=== PATIENT | male | born 1975 | race Caucasian/White ===

== ENCOUNTER → 2023-06-07 | Outpatient (CLI) | payer OTHER ==
--- NOTE | 2023-06-08 16:04 | MR ---
EXAMINATION TYPE: MR cspine/lspine wo con DATE OF EXAM: 06/07/2023 7:52 PM CLINICAL INDICATION:Male, 48 years old with history of M54.12 RADICULOPATHY, CERVICAL REGION, Neck pa in, Low back pain, Numbness, tingling into both arms/legs bilateral COMPARISON: None TECHNIQUE: Multi planar, multi sequence imaging was performed utilizing: T1-weighted, T2-weighted, a nd turbo inversion recovery imaging of the cervical and lumbar spine. MR contrast: IV Contrast: None. FINDINGS: CERVICAL: Alignment: The cervical vertebral bodies have preserved heights. Alignment is within normal limits gi carrie patient positioning. Bones: Scattered Modic endplate changes with osteophytes and disc space narrowing. Multilevel degener ative disc disease is noted and most pronounced at the C5-C7 vertebral levels. Cord: The spinal cord is unremarkable with regards to their signal intensity and morphology. Discs: Multilevel disc desiccation is present. C2-C3: No significant disc pathology. The spinal canal is patent. No neural foraminal stenosis. C3-C4: No significant disc pathology. The spinal canal is patent. No neural foraminal stenosis. C4-C5: No significant disc pathology. The spinal canal is patent. No neural foraminal stenosis. C5-C6: A disc osteophyte complex is present with mild spinal canal stenosis. Bilateral facet and unc overtebral joint arthropathy are present with moderate bilateral neural foraminal stenosis. C6-C7: A disc osteophyte complex is present with mild spinal canal stenosis. Bilateral facet and unc overtebral joint arthropathy are present with moderate to severe right and mild left neural foraminal stenosis. C7-T1: No significant disc pathology. The spinal canal is patent. No neural foraminal stenosis. Other: None. LUMBAR: Alignment: The lumbar vertebral bodies have preserved heights and alignment. Cord: The conus medullaris and the distal spinal cord appear unremarkable with regards to their signa l intensity and morphology. Bones/Discs: Mild degeneration changes throughout the spine with osteophyte formation and facet joint arthropathy. Intervertebral disc signal is maintained. T12-L1: No evidence of significant spinal canal stenosis or neural foraminal stenosis. L1-L2: No evidence of significant spinal canal stenosis or neural foraminal stenosis. L2-L3: No evidence of significant spinal canal stenosis or neural foraminal stenosis. L3-L4: No evidence of significant spinal canal stenosis. Facet joint arthropathy mild bilateral neura l foraminal stenosis. L4-L5: Disc bulge and facet joint arthropathy result in mild spinal canal and mild bilateral neural f oraminal stenosis. L5-S1: The disc is rounded posterior morphology without significant spinal canal stenosis. Facet join t arthropathy with moderate bilateral neural foraminal stenosis. No significant spinal canal or neural foraminal stenosis in the remainder of the visualized levels. Other findings: None. IMPRESSION: 1. No definitive evidence of disc herniation or significant spinal canal stenosis. 2. Mild disc degeneration with associated osteoarthritic changes. Neural foraminal stenosis worse in the cervical spine at C6-C7 with moderate to severe right and in the lumbar spine at L5-S1 with mode rate bilateral
== END | disposition home or self-care (01) ==
LOC: RADMRIMAIN 17:29
PROVIDERS: ATTEND Family Medicine
DX: M99.71 Connective tissue and disc stenosis of intervertebral foramina of cervical region (principal); M47.26 Other spondylosis with radiculopathy, lumbar region; M51.16 Intervertebral disc disorders with radiculopathy, lumbar region; M47.22 Other spondylosis with radiculopathy, cervical region
CPT/HCPCS: 72141; 72148

== ENCOUNTER → 2023-06-27 | Outpatient (CLI) | payer OTHER ==
[2023-06-27 13:29] VITALS: BP 146/100; PULSE 60; RESP 16
--- NOTE | 2023-06-27 13:59 | P.PAINPG ---
PQRS Measure Charge Sheet Comment: HISTORY OF PRESENT ILLNESS: A 48 yr old male as a referral from the [facility] presents today w severe and chronic neck pain x 6 mo secondary to spinal stenosis, DDD, spondylosis and facet arthropathy without myelopathy for evaluation. Pt states pain level is provoked at 6 /10 in intensity, constant, localized in the mid to lower cervical spine, predominantly axial, achy in character w occasional shooting pain towards the scapula and UEs/ hands. Pain is provoked by over activity. Pain is alleviated by physician guided exercises daily x 4 yrs which he currently does, chrioractic treatments monthly x 2 yrs w last visit in 2021, medications (Mobic, Ibu), topical, repositioning and rest. Cervical disability score at 24. PMH: OA, HTN, MDD, GERD, BPH, ED, PSH: DENIES SH: Negative x3 FH: Non contributory All: See list Meds: See list REVIEW OF ORGAN SYSTEMS: CONSTITUTIONAL: No fevers or chills. No recent weight loss. NEUROLOGICAL: + numbness and tingling along the distal extremities. No seizure disorders or headaches. MUSCULOSKELETAL: + pain PSYCHIATRIC: Denies current depression or suicidal thoughts. Physical Examinations : Constitutional : Cooperative , not in acute distress . Neurologic : Cranial nerve II to XII intact. No focal neurological deficits. Psychiatric : alert & oriented x 3. Matching mood & appropriate affect. Judgment & insight intact. Musculoskeletal : Cervical Spine Motor strength in the deltoid and biceps: Normal right side. Normal Left side Motor strength biceps and the wrist extensors: Normal right side . Normal left side Motor strength in the triceps muscle: Normal right side. Normal left side Deep tendon reflexes: Normal at the biceps. Normal at Brachioradialis. Normal at triceps Vertebral body tenderness to deep palpation over Cervical facet loading test: positive BL C4-C5, C5-C6 Spurling test: positive bilaterally Neck distraction test: positive bilaterally Lakeshia sign: positive bilaterally Lumbar spine Motor strength lower extremities ,thigh and legs 5/5 Right side , 5/5 Left side Deep tendon reflexes : Normal Knee Jerk. Normal Ankle Jerk Vertebral body tenderness over Avalos Test positive Lumbar facet Loading Test: positive Right / positive Left Range of motion of the lumbar spine Flexion 30 degrees, extension 10 degrees Straight Leg Raise test: Left/ Right positive at degree Johny test: positive right / positive left. Severe tenderness over the Sacroiliac joint on the Right / Left sides Gaenslen test: positive bilaterally Seated flexion test: positive bilaterally. Sacral spine : Severe tenderness over the Sacroiliac joint: right side / left side Range of motion: Flexion of the lumbar spine <60 degrees Range of motion: Extension of the lumbar spine <20 degrees Gaenslen's Test positive Johny test: positive right side / left side Thigh Thrust Test Sacral Thrust Test Imaging: MRI noncontrast of the cervical spine from 06/07/23 reviewed Assessment/ Plan : Cervical stenosis, Cervical DDD Recommendation of BL MBB C4-C6 #1. May need a series of injections, up until RFA, for optimal pain relief. Risks, benefits of procedure discussed and patient verbalized understanding. Admits to anti- coagulant use or medical history of diabetes. Protocol for discontinuation/ continuation of medications vasyl procedure discussed. Minimal anesthesia provided, if clinically indicated, consisting of Versed and Fentanyl. All questions answered. I have spent greater than 30 minutes on patient care today. Dr Mcknight was available by phone for the evaluation of this patient. The time was used to review the medical records including relevant urine studies and Prescription history (MAPs), review of the available imaging, evaluation and examination of the patient, coordination of care with the medical staff and if applicable referring physicians, as well as creation of the medical record Home Medications: Ambulatory Orders Meloxicam [Mobic] 7.5 mg PO DAILY 06/27/23 Controlled Substance Measures - Controlled Substance Measures Is patient prescribed a controlled substance at discharge?: No
== END ==
LOC: PNWHC3 12:36
PROVIDERS: ATTEND Specialist
DX: M50.321 Other cervical disc degeneration at C4-C5 level (principal); M50.322 Other cervical disc degeneration at C5-C6 level; M48.02 Spinal stenosis, cervical region; M19.90 Unspecified osteoarthritis, unspecified site; I10 Essential (primary) hypertension; F32.9 Major depressive disorder, single episode, unspecified; K21.9 Gastro-esophageal reflux disease without esophagitis; N40.0 Benign prostatic hyperplasia without lower urinary tract symptoms; Z87.438 Personal history of other diseases of male genital organs; Z88.8 Allergy status to other drugs, medicaments and biological substances
CPT/HCPCS: 99202

== ENCOUNTER 2023-07-19 06:01 | Day surgery (SDC) | payer OTHER ==
[2023-07-17 09:16] VITALS: BMI 29.8
[2023-07-19] MEDS: LACTATED RINGERS 1,000 ML IV ONE (06:40)
[2023-07-19] MEDS ORDERED: LACTATED RINGERS 1,000 ML IV SCH (06:41)
[2023-07-19] MEDS ORDERED: ROPIVACAINE 5MG/ML 20ML VIAL ONE (07:02)
[2023-07-19] MEDS ORDERED: MIDAZOLAM 2 MG/2 ML VIAL ONE (07:02)
[2023-07-19] MEDS ORDERED: fentaNYL (PF) 50 MCG/ML 2 ML AMP ONE (07:02)
[2023-07-19 07:14] VITALS: TEMP 97.3
[2023-07-19] MEDS: IV FLUID CONTINUATION 1,000 ML IV ONE ×2 (07:31→07:55)
--- NOTE | 2023-07-19 07:41 | P.PCN ---
Description of Procedure: Preprocedure diagnosis. Cervical facet joint arthropathy, cervical spine spondylosis, cervical degenerative disc disease. Postprocedure diagnosis. As above. Procedure done. Bilateral C4-5, C5-6 facet joint (C4, C5, C6 medial branch of dorsal ramus) diagnostic injection with local anesthetics under fluoroscopic guidance. Anesthesia. As per anesthesia department. IV sedation of Versed milligram, fentanyl micrograms give in OR. Continuous pulse ox, EKG, blood pressure and verbal communication was maintained with the patient in OR. Blood loss. None. Indication. Patient has got the diagnoses of cervical spondylolysis, facet joint arthropathy with neck pain. Discussed with the patient procedure, alternatives, complications including infection, bleeding, nerve damage, paralysis all of which could be permanent. Patient understands and all questions are answered. Procedure note. After getting consent patient in OR in prone position. Back of the neck was prepped with chlorhexidine and draped in sterile fashion. After injecting 3 mL of plain 1% lidocaine subcutaneously, a 22-gauge spinal needle was introduced under tunnel vision of the fluoroscope AP view at the waist of the articular pillar (lateral mass) at C4 vertebral level. In the lateral view of the fluoroscope it was confirmed that the tip of the needle stayed within the dorsal half of the articular pillar (lateral mass). So, right C4-5 facet joint was targeted by blocking right C4 and C5 medial branch, right C5-6 facet joint was targeted by blocking right C5 and C6 medial branch. In exactly the same way , after subcutaneous injection of lidocaine, 22-gauge spinal needles were introduced under tunnel vision of the fluoroscope AP view at the waist of the articular pillars (lateral mass) at C5 and C6 vertebral level. In the lateral view of the fluoroscope it was confirmed that the tip of the needle stayed within the dorsal half of the articular pillar (lateral mass). At each needle, 0.5 mL of 0.5% ropivacaine preservative-free was injected. In exactly same way left C4-5, C5-6 facet joints were targeted by blocking left C4, C5, C6 medial branch of dorsal ramus. After the procedure needle was taken out and bandage was applied. Disposition. Patient tolerated the procedure well. No complication. Discharged home in stable condition.
--- NOTE | 2023-07-19 07:52 | FL ---
Fluoroscopy History: Errol C/TH Facet Blk 45sec fluoro time .[id number] DAP
[2023-07-19 07:55] VITALS: BP 118/82; PULSE 63; RESP 20
== END 2023-07-19 07:57 | disposition home or self-care (01) ==
LOC: ORPAIN 06:01
PROVIDERS: ATTEND Pain Medicine Interventional Pain Medicine
DX: M47.812 Spondylosis without myelopathy or radiculopathy, cervical region (principal); M50.322 Other cervical disc degeneration at C5-C6 level
CPT/HCPCS: 64491 ×2; 64490; J2250; J3010; J2795; 99152; 99153

== ENCOUNTER → 2023-09-05 | Outpatient (CLI) | payer OTHER ==
[2023-09-05 08:18] VITALS: BP 152/103; PULSE 59; RESP 16; TEMP 97.1
--- NOTE | 2023-09-05 14:46 | P.PAINPG ---
PQRS Measure Charge Sheet Comment: HISTORY OF PRESENT ILLNESS: A 48 yr old male presents today w severe and chronic neck pain x 6 mo secondary to spinal stenosis, DDD, spondylosis and facet arthropathy without myelopathy for evaluation s/p BL MBB C4-C6 #1. Pt states he experienced 80% pain relief x 2 wks s/p procedure. Pt states pain level is provoked at 6 /10 in intensity, constant, localized in the mid to lower cervical spine, predominantly axial, dull in character w occasional shooting pain towards the scapula and UEs/ hands. Pain is provoked by over activity. Pain is alleviated by physician guided exercises daily x 4 yrs which he currently does, chiropractic treatments monthly x 2 yrs w last visit in 2021, medications (Mobic, Ibu), topical, repositioning and rest. Cervical disability score at 24. Interventional procedures include BL MBB C4-C6 x1 Medications include Mobic, Ibu REVIEW OF ORGAN SYSTEMS: CONSTITUTIONAL: No fevers or chills. No recent weight loss. NEUROLOGICAL: + numbness and tingling along the distal extremities. No seizure disorders or headaches. MUSCULOSKELETAL: + pain PSYCHIATRIC: Denies current depression or suicidal thoughts. Physical Examinations : Constitutional : Cooperative , not in acute distress . Neurologic : Cranial nerve II to XII intact. No focal neurological deficits. Psychiatric : alert & oriented x 3. Matching mood & appropriate affect. Judgment & insight intact. Musculoskeletal : Cervical Spine Motor strength in the deltoid and biceps: Normal right side. Normal Left side Motor strength biceps and the wrist extensors: Normal right side . Normal left side Motor strength in the triceps muscle: Normal right side. Normal left side Deep tendon reflexes: Normal at the biceps. Normal at Brachioradialis. Normal at triceps Vertebral body tenderness to deep palpation over Cervical facet loading test: positive BL C4-C5, C5-C6 Spurling test: positive bilaterally Neck distraction test: positive bilaterally Lakeshia sign: positive bilaterally Lumbar spine Motor strength lower extremities ,thigh and legs 5/5 Right side , 5/5 Left side Deep tendon reflexes : Normal Knee Jerk. Normal Ankle Jerk Vertebral body tenderness over Avalos Test positive Lumbar facet Loading Test: positive Right / positive Left Range of motion of the lumbar spine Fl exion 30 degrees, extension 10 degrees Straight Leg Raise test: Left/ Right positive at degree Johny test: positive right / positive left. Severe tenderness over the Sacroiliac joint on the Right / Left sides Gaenslen test: positive bilaterally Seated flexion test: positive bilaterally. Sacral spine : Severe tenderness over the Sacroiliac joint: right side / left side Range of motion: Flexion of the lumbar spine <60 degrees Range of motion: Extension of the lumbar spine <20 degrees Gaenslen's Test positive Johny test: positive right side / left side Thigh Thrust Test Sacral Thrust Test Imaging: MRI noncontrast of the cervical spine from 06/07/23 reviewed Assessment/ Plan : Cervical stenosis, Cervical DDD Recommendation of BL MBB C4-C6 #2. May need a series of injections, up until RFA, for optimal pain relief. Risks, benefits of procedure discussed and patient verbalized understanding. Admits to anti- coagulant use or medical history of diabetes. Protocol for discontinuation/ continuation of medications vasyl procedure discussed. Minimal anesthesia provided, if clinically indicated, consisting of Versed and Fentanyl. All questions answered. I have spent greater than 30 minutes on patient care today. Dr Mcknight was available by phone for the evaluation of this patient. The time was used to review the medical records including relevant urine studies and Prescription history (MAPs), review of the available imaging, evaluation and examination of the patient, coordination of care with the medical staff and if applicable referring physicians, as well as creation of the medical record PQRS Narrative: Hx Alcohol Use (MH) No Home Medications: Ambulatory Orders Cholecalciferol [Vitamin D3 (125 Mcg = 5000 Iu)] 125 mcg PO DAILY 07/17/23 Citalopram Hydrobromide [Citalopram HBr] 20 mg PO DAILY 07/17/23 Losartan [Cozaar] 50 mg PO DAILY 07/17/23 Meloxicam [Mobic] 15 mg PO DAILY 07/17/23 Omeprazole 40 mg PO DAILY 07/17/23 Prazosin HCl 2 mg PO DAILY 07/17/23 Sildenafil Citrate 50 mg PO DAILY 07/17/23 Vitamin B Complex 1 each PO DAILY 07/17/23 hydroCHLOROthiazide 12.5 mg PO DAILY 07/17/23 traZODone HCL 100 mg PO DAILY 07/17/23 Controlled Substance Measures - Controlled Substance Measures Is patient prescribed a controlled substance at discharge?: No
== END ==
LOC: PNWHC3 07:32
PROVIDERS: ATTEND Specialist
DX: M50.321 Other cervical disc degeneration at C4-C5 level (principal); M50.322 Other cervical disc degeneration at C5-C6 level; M48.02 Spinal stenosis, cervical region; Z88.8 Allergy status to other drugs, medicaments and biological substances
CPT/HCPCS: 99211

== ENCOUNTER 2023-10-04 05:39 | Day surgery (SDC) | payer OTHER ==
[2023-10-04 06:33] VITALS: TEMP 96.9
[2023-10-04] MEDS: LACTATED RINGERS 1,000 ML BAG IV STA (06:39)
[2023-10-04] MEDS: IV FLUID CONTINUATION 1,000 ML IV ONE ×2 (06:39→07:47)
[2023-10-04] MEDS ORDERED: LACTATED RINGERS 1,000 ML IV SCH (06:50)
[2023-10-04] MEDS ORDERED: ROPIVACAINE 5MG/ML 20ML VIAL ONE (07:15)
[2023-10-04] MEDS ORDERED: fentaNYL (PF) 50 MCG/ML 2 ML AMP ONE (07:15)
[2023-10-04] MEDS ORDERED: MIDAZOLAM 2 MG/2 ML VIAL ONE (07:15)
--- NOTE | 2023-10-04 07:45 | P.PCN ---
Date of Procedure: 10/04/23 Procedure(s) Performed: PREOPERATIVE DIAGNOSIS: 1-Cervical Spondylosis with Facet Arthropathy.without myelopathy. 2-cervical degenerative disc disease POSTOPERATIVE DIAGNOSIS:1-cervical spondylosis with facet arthropathy without myelopathy. 2-cervical degenerative disc disease PROCEDURES: Diagnostic bilateral C4 , C5 , and C6 medial branch blocks, with fluoroscopic guidance (fluoroscopy images available in radiology department ) ( to target the facet joint at bilateral C4- 5 ,C5- 6 )#2nd ANESTHESIA: moderate sedation with Versed 2 mg , and fentanyl 100 micrograms (sedation was started at 07:15 ended 07:40 ) EBL: Minimal PROCEDURE INDICATION: The patient with neck pain secondary to cervical arthropathy unresponsive to more conservative treatments. PROCEDURE DESCRIPTION / TECHNIQUE: The patient was seen and identified in the preoperative area. Risks, benefits, complications, and alternatives were discussed with the patient, the patient agreed to proceed with the procedure and signed the consent. IV was started. Vital signs remained stable throughout the procedure. Patient was taken to the OR and time out was completed. The patient was placed in the lateral position on the procedure table. The cervical area was prepped and draped in the usual sterile fashion. Critical pause was taken. Vital signs were closely monitored during the procedure. Conscious sedation was used during the procedure to decrease patients anxiety. Using cross-table lateral fluoroscopy, the centroid of the trapezoid of right C4 , C5 and C6, was identified, marked, and localized with 1% lidocaine 1 ml at each level for skin and Sub Q infiltrations . Subsequently, a 22 G 4 spinal needle was advanced guided by fluoroscopy to the centroid of the trapezoid of Right C4 , C5, C6 . Houghton tip position was confirmed at the centroid of the trapezoids of Right C4 , C5 ,C6 with anteroposterior fluoroscopy. Subsequently, 2 ml of preservative-free Ropivacaine 0.5% mixed and half ml of the was injected after negative aspiration for blood and CSF. Houghton was then removed intact the same procedure was repeated at the left C4 , C5 , and C6 levels. COMPLICATIONS: No acute complications. COMMENTS:(We tried to do the procedure and in prone position I was not able to visualize C6 vertebral, this reason the procedure done in lateral position) DISPOSITION / PLANS: The patient was placed in a supine position and transferred to the recovery area in a stable condition for observation and was discharged from the recovery room after meeting discharge criteria. Home discharge instructions given to the patient by the staff. The patient was reexamined prior to discharge. The patient will schedule a follow up in the clinic in 2-4 weeks.
[2023-10-04 08:09] VITALS: RESP 16
[2023-10-04 08:21] VITALS: BP 103/71; PULSE 67
--- NOTE | 2023-10-04 11:39 | FL ---
EXAMINATION TYPE: FL guided pain mgmt statistic Intraoperative/procedural fluoroscopic services were provided. Total fluoroscopy time is 45.5 seconds with a total of 3 submitted images to PACS. Please s ee the operative/procedural note for further details. DAP: 0.10837 mGym2
== END 2023-10-04 08:28 | disposition home or self-care (01) ==
LOC: ORPAIN 05:39
PROVIDERS: ATTEND Specialist
DX: M47.812 Spondylosis without myelopathy or radiculopathy, cervical region (principal); M50.322 Other cervical disc degeneration at C5-C6 level; Z88.8 Allergy status to other drugs, medicaments and biological substances
CPT/HCPCS: 64490; 64491 ×2; 99152; 99153; J2250; J3010; J2795

== ENCOUNTER → 2023-10-24 | Outpatient (CLI) | payer OTHER ==
[2023-10-24 07:48] VITALS: BP 172/111; PULSE 53; RESP 16
--- NOTE | 2023-10-24 14:53 | P.PAINPG ---
PQRS Measure Charge Sheet Comment: HISTORY OF PRESENT ILLNESS: A 48 yr old male presents today w severe and chronic neck pain x 6 mo secondary to spinal stenosis, DDD, spondylosis and facet arthropathy without myelopathy for evaluation s/p BL MBB C4-C6 #2. Pt states he experienced 85% pain relief x 2 days s/p procedure. Pt states pain level is provoked at 6 /10 in intensity, constant, localized in the mid to lower cervical spine, predominantly axial, dull in character w occasional shooting pain towards the scapula and UEs/ hands. Pain is provoked by over activity. Pain is alleviated by physician guided exercises daily x 4 yrs which he currently does, chiropractic treatments monthly x 2 yrs w last visit in 2021, medications (Mobic, Ibu), topical, repositioning and rest. Cervical disability score at 23. Interventional procedures include BL MBB C4-C6 x2 Medications include Mobic, Ibu REVIEW OF ORGAN SYSTEMS: CONSTITUTIONAL: No fevers or chills. No recent weight loss. NEUROLOGICAL: + numbness and tingling along the distal extremities. No seizure disorders or headaches. MUSCULOSKELETAL: + pain PSYCHIATRIC: Denies current depression or suicidal thoughts. Physical Examinations : Constitutional : Cooperative , not in acute distress . Neurologic : Cranial nerve II to XII intact. No focal neurological deficits. Psychiatric : alert & oriented x 3. Matching mood & appropriate affect. Judgment & insight intact. Musculoskeletal : Cervical Spine Motor strength in the deltoid and biceps: Normal right side. Normal Left side Motor strength biceps and the wrist extensors: Normal right side . Normal left side Motor strength in the triceps muscle: Normal right side. Normal left side Deep tendon reflexes: Normal at the biceps. Normal at Brachioradialis. Normal at triceps Vertebral body tenderness to deep palpation over Cervical facet loading test: positive BL C4-C5, C5-C6 Spurling test: positive bilaterally Neck distraction test: positive bilaterally Lakeshia sign: positive bilaterally Lumbar spine Motor strength lower extremities ,thigh and legs 5/5 Right side , 5/5 Left side Deep tendon reflexes : Normal Knee Jerk. Normal Ankle Jerk Vertebral body tenderness over Avalos Test positive Lumbar facet Loading Test: positive Right / positive Left Range of motion of the lumbar spine F lexion 30 degrees, extension 10 degrees Straight Leg Raise test: Left/ Right positive at degree Johny test: positive right / positive left. Severe tenderness over the Sacroiliac joint on the Right / Left sides Gaenslen test: positive bilaterally Seated flexion test: positive bilaterally. Sacral spine : Severe tenderness over the Sacroiliac joint: right side / left side Range of motion: Flexion of the lumbar spine <60 degrees Range of motion: Extension of the lumbar spine <20 degrees Gaenslen's Test positive Johny test: positive right side / left side Thigh Thrust Test Sacral Thrust Test Imaging: MRI noncontrast of the cervical spine from 06/07/23 reviewed Assessment/ Plan : Cervical stenosis, Cervical DDD Recommendation of BL RFA C4-C6. Exhibited optimal pain relief w prior BL MBB procedures. Risks, benefits of procedure discussed and patient verbalized understanding. Admits to anti- coagulant use or medical history of diabetes. Protocol for discontinuation/ continuation of medications vasyl procedure discussed. Minimal anesthesia provided, if clinically indicated, consisting of Versed and Fentanyl. All questions answered. I have spent greater than 30 minutes on patient care today. Dr Mcknight was available by phone for the evaluation of this patient. The time was used to review the medical records including relevant urine studies and Prescription history (MAPs), review of the available imaging, evaluation and examination of the patient, coordination of care with the medical staff and if applicable referring physicians, as well as creation of the medical record PQRS Narrative: Hx Alcohol Use (MH) No Home Medications: Ambulatory Orders Cholecalciferol [Vitamin D3 (125 Mcg = 5000 Iu)] 125 mcg PO DAILY 07/17/23 Citalopram Hydrobromide [Citalopram HBr] 30 mg PO DAILY 07/17/23 Losartan [Cozaar] 50 mg PO DAILY 07/17/23 Meloxicam [Mobic] 15 mg PO DAILY 07/17/23 Omeprazole 40 mg PO DAILY 07/17/23 Prazosin HCl [Minipress] 2 mg PO DAILY 07/17/23 Sildenafil Citrate 50 mg PO DAILY PRN 07/17/23 Vitamin B Complex 1 each PO DAILY 07/17/23 hydroCHLOROthiazide 12.5 mg PO DAILY 07/17/23 traZODone HCL 100 mg PO HS 07/17/23 Controlled Substance Measures - Controlled Substance Measures Is patient prescribed a controlled substance at discharge?: No
== END ==
LOC: PNWHC3 07:16
PROVIDERS: ATTEND Specialist
DX: M50.321 Other cervical disc degeneration at C4-C5 level (principal); M50.322 Other cervical disc degeneration at C5-C6 level; M48.02 Spinal stenosis, cervical region; Z88.8 Allergy status to other drugs, medicaments and biological substances
CPT/HCPCS: 99211

== ENCOUNTER 2023-11-22 06:20 | Day surgery (SDC) | payer OTHER ==
[2023-11-22] MEDS ORDERED: LACTATED RINGERS 1,000 ML BAG ONE (06:50)
[2023-11-22] MEDS ORDERED: ROPIVACAINE 5MG/ML 20ML VIAL ONE (07:11)
[2023-11-22] MEDS ORDERED: DEXAMETHASONE SOD PHOSPHATE 10 MG/ML 1 ML VIAL ONE (07:11)
[2023-11-22] MEDS ORDERED: fentaNYL (PF) 50 MCG/ML 2 ML AMP ONE (07:11)
[2023-11-22] MEDS ORDERED: MIDAZOLAM 2 MG/2 ML VIAL ONE (07:11)
--- NOTE | 2024-01-14 18:19 | FL ---
EXAMINATION TYPE: FL guided pain mgmt statistic DATE OF EXAM: 12/12/2023 9:04 AM COMPARISON: Pre Operative Images if available both CT/MRI or plain film CLINICAL INDICATION: Male, 48 years old with history of PAIN CERV RF RIGHT SIDE; TECHNIQUE: FL guided pain mgmt statistic, multiple fluoroscopic images provided for procedure. Total fluoroscopy time: 12 seconds Total submitted images to PACS: 3 DAP: [id number] mGym2 Gycm2 uGym2 cGycm2 or equivalent. FINDINGS: Fluoroscopic images during injection for pain management demonstrate multilevel degeneration changes throughout the spine. No evidence for fracture. No acute process identified. IMPRESSION: 1. No evidence for intraoperative complication. 2. Please see the operative/procedural note for further details. [facility], , 01/14/2024 6:17 PM
== END 2023-11-22 08:48 ==
LOC: ORPAIN 06:20
DX: M47.812 Spondylosis without myelopathy or radiculopathy, cervical region (principal); I10 Essential (primary) hypertension; K21.9 Gastro-esophageal reflux disease without esophagitis; F32.A Depression, unspecified; Z88.8 Allergy status to other drugs, medicaments and biological substances; Z79.899 Other long term (current) drug therapy
CPT/HCPCS: 64633; 64634; 99152

== ENCOUNTER 2023-12-06 07:49 | Day surgery (SDC) | payer OTHER ==
[2023-12-06] MEDS ORDERED: LACTATED RINGERS 1,000 ML BAG ONE (09:28)
[2023-12-06] MEDS ORDERED: fentaNYL (PF) 50 MCG/ML 2 ML AMP ONE (09:33)
[2023-12-06] MEDS ORDERED: methylPREDNISolone ACETATE 40 MG/ML 1 ML VIAL ONE (09:33)
[2023-12-06] MEDS ORDERED: MIDAZOLAM 2 MG/2 ML VIAL ONE (09:33)
[2023-12-06] MEDS ORDERED: ROPIVACAINE 5MG/ML 20ML VIAL ONE (09:33)
--- NOTE | 2024-01-14 18:20 | FL ---
EXAMINATION TYPE: FL guided pain mgmt statistic DATE OF EXAM: 12/17/2023 12:08 PM COMPARISON: Pre Operative Images if available both CT/MRI or plain film CLINICAL INDICATION: Male, 48 years old with history of Cerv Rad Freq; TECHNIQUE: FL guided pain mgmt statistic, multiple fluoroscopic images provided for procedure. Total fluoroscopy time: 33 seconds Total submitted images to PACS: 3 DAP: 0.43559 mGym2 Gycm2 uGym2 cGycm2 or equivalent. FINDINGS: Fluoroscopic images during injection for pain management demonstrate multilevel degeneration changes throughout the spine. No evidence for fracture. No acute process identified. IMPRESSION: 1. No evidence for intraoperative complication. 2. Please see the operative/procedural note for further details. [facility], , 01/14/2024 6:17 PM
== END 2023-12-06 10:35 ==
LOC: ORPAIN 07:49
PROVIDERS: ATTEND Specialist
DX: M47.812 Spondylosis without myelopathy or radiculopathy, cervical region (principal); Z79.1 Long term (current) use of non-steroidal anti-inflammatories (NSAID); Z79.899 Other long term (current) drug therapy; Z88.8 Allergy status to other drugs, medicaments and biological substances
CPT/HCPCS: 64633; 64634; 99152

== ENCOUNTER → 2024-02-10 | Outpatient (CLI) | payer OTHER ==
[2024-02-10 08:49] VITALS: BP 177/119; PULSE 54; RESP 16; TEMP 96.8
--- NOTE | 2024-02-12 07:52 | P.PAINPG ---
Objective - Vital Signs Vital signs: Intake & Output 02/09/24 02/10/24 02/10/24 18:59 06:59 18:59 Weight 86.183 kg PQRS Measure Charge Sheet Comment: HISTORY OF PRESENT ILLNESS: A 48 yr old male presents today w severe and chronic neck pain & LBP > 6 mo secondary to spinal stenosis, radiculopathy, spondylosis and facet arthropathy without myelopathy for evaluation s/p BL RFA C4-C6. Pt states he experienced 55% pain relief s/p procedure. Pt states pain level is provoked at 7 /10 in intensity, constant, localized in the lumbar spine, predominantly axial, dull in character w occasional shooting pain towards the BLEs. Pain is provoked by over activity. Pain is alleviated by physician guided exercises daily (cervical) x 4 yrs which he currently does, chiropractic treatments monthly x 2 yrs w last visit in 2021, medications, topical, repositioning and rest. Interventional procedures include BL RFA C4-C6 (Nov 2023) Medications include Mobic, Ibu REVIEW OF ORGAN SYSTEMS: CONSTITUTIONAL: No fevers or chills. No recent weight loss. NEUROLOGICAL: + numbness and tingling along the distal extremities. No seizure disorders or headaches. MUSCULOSKELETAL: + pain PSYCHIATRIC: Denies current depression or suicidal thoughts. Physical Examinations : Constitutional : Cooperative , not in acute distress . Neurologic : Cranial nerve II to XII intact. No focal neurological deficits. Psychiatric : alert & oriented x 3. Matching mood & appropriate affect. Judgment & insight intact. Musculoskeletal : Cervical Spine Motor strength in the deltoid and biceps: Normal right side. Normal Left side Motor strength biceps and the wrist extensors: Normal right side . Normal left side Motor strength in the triceps muscle: Normal right side. Normal left side Deep tendon reflexes: Normal at the biceps. Normal at Brachioradialis. Normal at triceps Vertebral body tenderness to deep palpation over Cervical facet loading test: positive BL C4-C5, C5-C6 Spurling test: positive bilaterally Neck distraction test: positive bilaterally Lakeshia sign: positive bilaterally Lumbar spine Motor strength lower extremities ,thigh and legs 5/5 Right side , 5/5 Left side Deep tendon reflexes : Normal Knee Jerk. Normal Ankle Jerk Vertebral body tenderness over Avalos Test positive Lumbar facet Loading Test: positive Right / positive Left Range of motion of the lumbar spine Flexion 30 degrees, extension 10 degrees Straight Leg Raise test: Left/ Right positive at degree Johny test: positive right / positive left. Severe tenderness over the Sacroiliac joint on the Right / Left sides Gaenslen test: positive bilaterally Seated flexion test: positive bilaterally. Sacral spine : Severe tenderness over the Sacroiliac joint: right side / left side Range of motion: Flexion of the lumbar spine <60 degrees Range of motion: Extension of the lumbar spine <20 degrees Gaenslen's Test positive Johny test: positive right side / left side Thigh Thrust Test Sacral Thrust Test Imaging: MRI non contrast of the cervical/ lumbar spine from 06/07/23 reviewed Assessment/ Plan : Cervical stenosis, Cervical radiculopathy, L4-L5 radiculopathy, L5-S1 rounded disc morphology Recommendation of PT x 6 wks M54.16 and HEP. All questions answered. I have spent greater than 30 minutes on patient care today. Dr Mcknight was available by phone for the evaluation of this patient. The time was used to review the medical records including relevant urine studies and Prescription history (MAPs), review of the available imaging, evaluation and examination of the patient, coordination of care with the medical staff and if applicable referring physicians, as well as creation of the medical record PQRS Narrative: Hx Alcohol Use (MH) No Home Medications: Ambulatory Orders Cholecalciferol [Vitamin D3 (125 Mcg = 5000 Iu)] 125 mcg PO DAILY 07/17/23 Citalopram Hydrobromide [Citalopram HBr] 30 mg PO DAILY 07/17/23 Losartan [Cozaar] 50 mg PO DAILY 07/17/23 Meloxicam [Mobic] 15 mg PO DAILY 07/17/23 Omeprazole 40 mg PO DAILY 07/17/23 Prazosin HCl [Minipress] 2 mg PO DAILY 07/17/23 Sildenafil Citrate 50 mg PO DAILY PRN 07/17/23 Vitamin B Complex 1 each PO DAILY 07/17/23 hydroCHLOROthiazide 12.5 mg PO DAILY 07/17/23 traZODone HCL 100 mg PO HS 07/17/23 Controlled Substance Measures - Controlled Substance Measures Is patient prescribed a controlled substance at discharge?: No
== END ==
LOC: PNWHC3 08:01
PROVIDERS: ATTEND Specialist
DX: M48.02 Spinal stenosis, cervical region (principal); M47.26 Other spondylosis with radiculopathy, lumbar region; Z88.8 Allergy status to other drugs, medicaments and biological substances
CPT/HCPCS: 99211

== ENCOUNTER → 2024-06-16 | Day surgery (SDC) | payer OTHER ==
[2024-06-12 12:47] VITALS: BMI 31.4
[~2024-06-16] MED LIST: IOPAMIDOL M300 15ML VIAL ONE; LACTATED RINGERS 1,000 ML IV SCH; methylPREDNISolone ACETATE 80 MG/ML 1 ML VIAL ONE
[2024-06-16 06:36] VITALS: TEMP 97.4
--- NOTE | 2024-06-16 07:17 | P.PCN ---
Description of Procedure: PREOPERATIVE DIAGNOSIS: 1- Lumbar Degenerative Disc Diseases 2-Lumbar spondylosis with Facet arthropathy without myelopathy. 3-lumbar spinal stenosis POSTOPERATIVE DIAGNOSIS: 1-lumbar degenerative disc disease. 2-lumbar spondylosis with facet arthropathy without myelopathy. 3-lumbar spinal stenosis. PROCEDURE Injection of radio contrast material into L5-S1 interspace, interpretation of epidurogram, injection of steroid at L5-S1 epidural space under fluoroscopic guidance. ANESTHESIA: Lidocaine 1% subcutaneously. In OR continuous pulse ox, EKG, blood pressure and verbal communication was maintained with the patient. EBL: Minimal PROCEDURE INDICATION: Before the procedure were discussed with the patient detailed procedure, alternatives, complications including infection, bleeding, nerve damage, paralysis all of which could be permanent. Patient understands and all questions were answered. PROCEDURE DESCRIPTION : After getting consent, patient in OR in prone position. Back was prepped with chlorhexidine and draped in sterile fashion. After injecting 10 mL of 1% lidocaine subcutaneously, a 20-gauge Tuohy needle was introduced at L5-S1 interspace with loss of resistance technique using a syringe filled with air. Negative CSF, negative blood, negative paresthesia. Needle position was confirmed with AP and lateral view of the fluoroscope. After repeat negative aspiration 2 mL of Omnipaque 200 water soluble contrast was injected. Contrast was noted in the epidural space. No contrast was noted into intrathecal or intravascular space. After repeat negative aspiration 6 mL solution was injected intermittently which consists of 5 mL of preservative-free normal saline mixed with 1 mL of 80 mg Depo-Medrol. Needle was withdrawn intact. Skin was cleansed and Band-Aids was applied. DISPOSITION / PLANS: The patient tolerated the procedure well. No complication. The patient was placed in a supine position and transferred to the recovery area in a stable condition for observation. There was no evidence of lower extremity motor or sensory deficit after the procedure. Patient was discharged from the recovery room after meeting discharge criteria. Home discharge instructions were given to the patient by the staff. The patient was reexamined prior to discharge. The patient will schedule a follow up in the clinic in 2-4 weeks.
--- NOTE | 2024-06-16 07:25 | FL ---
EXAMINATION TYPE: FL guided pain mgmt statistic DATE OF EXAM: 06/16/2024 7:15 AM COMPARISON: Pre Operative Images if available both CT/MRI or plain film CLINICAL INDICATION: Male, 49 years old with history of LESI; TECHNIQUE: FL guided pain mgmt statistic, multiple fluoroscopic images provided for procedure. Total fluoroscopy time: 5.48 seconds Total submitted images to PACS: 6 DAP: [id number] FINDINGS: Fluoroscopic images during injection for pain management demonstrate multilevel degeneration changes throughout the spine. No evidence for fracture. No acute process identified. IMPRESSION: 1. No evidence for intraoperative complication. 2. Please see the operative/procedural note for further details. [facility], , 06/16/2024 7:23 AM
[2024-06-16 07:40] VITALS: BP 136/91; PULSE 70; RESP 16
== END ==
LOC: ORPAIN 05:55
PROVIDERS: ATTEND Pain Medicine Interventional Pain Medicine
DX: M47.816 Spondylosis without myelopathy or radiculopathy, lumbar region (principal); M48.061 Spinal stenosis, lumbar region without neurogenic claudication; M51.369 Other intervertebral disc degeneration, lumbar region without mention of lumbar back pain or lower extremity pain; M54.16 Radiculopathy, lumbar region
CPT/HCPCS: 62323; Q9967; J1010

== ENCOUNTER → 2024-07-28 | Outpatient (CLI) | payer OTHER ==
--- NOTE | 2024-07-28 09:47 | US ---
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 FINDINGS: EXAM MEASUREMENTS: Liver Length: 13.1 cm Gallbladder Wall: 0.21 cm CBD: 0.28 cm Right Kidney: 10.0 x 6.2 x 6.1 cm INTEGRATIVE MEDICINE PHYSICIAN NOTES: Pancreas: parts visualized appear wnl Liver: heterogeneous and difficult to penetrate Gallbladder: wnl Evidence for sonographic Mota's sign: No CBD: wnl Right Kidney: wnl The visualized portions of pancreas are unremarkable. Liver is diffusely heterogenous and difficult t o penetrate with increased attenuation. Focal regions of fatty sparing adjacent to the gallbladder. G allbladder demonstrates no stones, wall thickening or surrounding fluid. Negative sonographic Mota' s sign. Common bile duct is within normal limits. Right kidney demonstrates no hydronephrosis, shadow ing calculus, or solid mass. IMPRESSION: Diffusely heterogenous increased echogenicity of the liver. Findings are most commonly seen with hepa tic steatosis. Regions of focal fatty sparing adjacent to the gallbladder. [facility], , 07/28/2024 9:45 AM
== END | disposition home or self-care (01) ==
LOC: RADUSWWP 08:58
DX: K76.0 Fatty (change of) liver, not elsewhere classified (principal); K75.4 Autoimmune hepatitis
CPT/HCPCS: 76705